=== PATIENT | female | born 1975 | race Caucasian/White ===

== ENCOUNTER 2017-02-26 14:55 | Emergency (ER) | payer OTHER ==
[2017-02-26] MEDS ORDERED: SOLUMEDROL 125 MG/2 ML 125 MG/2 ML PDS IM ONE (15:11)
[2017-02-26] MEDS ORDERED: EPINEPHRINE 0.3 MG/0.3 ML KIT SC PRN (15:11)
[2017-02-26] MEDS ORDERED: EPINEPHRINE 1:1000 AMP 1 MG/ML SOL ONE (15:15)
[2017-02-26] MEDS ORDERED: SOLUMEDROL 125 MG/2 ML 125 MG/2 ML PDS ONE (15:15)
[2017-02-26 18:47] VITALS: TEMP 97.6
[2017-02-26 19:09] VITALS: RESP 18
[2017-02-26 19:10] VITALS: BP 115/68; PULSE 87; O2SAT 100
== END 2017-02-26 16:15 | disposition home or self-care (01) | DRG 923 ==
LOC: ED 14:55
DX: T78.1XXA Other adverse food reactions, not elsewhere classified, initial encounter (principal); L29.9 Pruritus, unspecified; R06.00 Dyspnea, unspecified; R09.89 Other specified symptoms and signs involving the circulatory and respiratory systems
CPT/HCPCS: 99283; J2930